=== PATIENT | male | born 1995 | race African-American/Black ===

== ENCOUNTER 2019-07-25 14:29 | Inpatient (IN) | payer OTHER ==
--- NOTE | 2019-07-25 14:47 | EDM.PDOC ---
ED HPI GENERAL MEDICAL PROBLEM - General Chief Complaint: Skin Complaint Stated Complaint: SANCHEZ BITE Time Seen by Provider: 07/25/19 14:37 Source of Information: Reports: Patient History Limitations: Reports: No Limitations - History of Present Illness INITIAL COMMENTS - FREE TEXT/NARRATIVE: HISTORY AND PHYSICAL: History of present illness: Patient is a 23-year-old male presents to the ED with complaint of sanchez bite. Patient was working outside this morning in 5-10 degree weather and states he did wear gloves. He stopped working around 11:30 this morning and has been inside since then but states he continues to have a lot of pain. He has take 1g Tylenol and 800mg Motrin prior to coming to ED without relief of symptoms. Review of systems: As per history of present illness and below otherwise all systems reviewed and negative. Past medical history: As per history of present illness and as reviewed below otherwise noncontributory. Surgical history: As per history of present illness and as reviewed below otherwise noncontributory. Social history: No reported history of drug or alcohol abuse. Family history: As per history of present illness and as reviewed below otherwise noncontributory. Physical exam: General: Patient sitting comfortably in no acute distress and nontoxic appearing HEENT: Atraumatic, normocephalic, pupils reactive, negative for conjunctival pallor or scleral icterus, mucous membranes moist, throat clear, neck supple, nontender, trachea midline. No meningeal signs. Lungs: Clear to auscultation, breath sounds equal bilaterally, chest nontender. Heart: S1S2, regular, negative for clicks, rubs, or overt murmur. Abdomen: Soft, nondistended, nontender. Negative for masses or hepatosplenomegaly. Negative for costovertebral tenderness. No rigidity, rebound , guarding. Pelvis: Stable nontender. Genitourinary: Deferred. Rectal: Deferred. Extremities: Darker discoloration to the 2nd-5th digits on the left and 2nda nd 4th digits on the right from just below the PIP to the distal tip with purplish discoloration to the finger nails. The fingers are slightly swollen and feel firmer to touch. Atraumatic, negative for cords or calf pain. Neurovascular unremarkable. Neuro: Awake, alert, oriented. Cranial nerves II through XII unremarkable. Cerebellum unremarkable. Motor and sensory unremarkable throughout. Exam nonfocal. Notes: Diagnostics: [] Therapeutics: Toradol 60mg IM Prescriptions: Impression: Frostbite, hand pain Plan: Patient will be admitted to Dr. Rich, general surgery, for further management and care. Definitive disposition and diagnosis as appropriate pending reevaluation and review of above. Bilateral Hands Pain Score (Numeric/FACES): 9 - Related Data Allergies Allergy/AdvReac Type Severity Reaction Status Date / Time No Known Allergies Allergy Verified 07/25/19 14:47 Home Meds: Home Meds . [No Known Home Meds] 07/25/19 [History] ED ROS GENERAL - Review of Systems Review Of Systems: ROS reveals no pertinent complaints other than HPI. ED EXAM, SKIN/RASH Exam: See Below (see dictation) Course - Vital Signs Last Recorded V/S: Last Vital Signs Temp 98.7 F 07/25/19 14:47 Pulse 98 07/25/19 14:47 Resp 20 07/25/19 14:47 BP 160/107 H 07/25/19 14:47 Pulse Ox 98 07/25/19 14:47 - Orders/Labs/Meds Orders: Active Orders 24 hr Category Date Time Status Admission Status [Patient Status] [ADT] Stat ADT 07/25/19 16:28 Ordered Meds: Medications Discontinued Medications Generic Name Dose Route Start Last Admin Trade Name Bebe PRN Reason Stop Dose Admin Ketorolac Tromethamine 60 mg 07/25/19 14:55 07/25/19 15:04 Toradol IM 07/25/19 14:56 60 mg ONETIME ONE Administration Departure - Departure Time of Disposition: 16:42 Disposition: Refer to Observation Condition: Good Clinical Impression: Frostbite, Hand pain - Discharge Information Referrals: PCP,None [Primary Care Provider] - Forms: ED Department Discharge - My Orders Last 24 Hours: My Active Orders 07/25/19 16:28 Admission Status [Patient Status] [ADT] Stat - Assessment/Plan Last 24 Hours: My Active Orders 07/25/19 16:28 Admission Status [Patient Status] [ADT] Stat
[2019-07-25] MEDS ORDERED: Ketorolac 60 MG/2 ML SDV IM ONE (14:55)
--- NOTE | 2019-07-25 18:38 | PCM.HP.2 ---
<Bassem Jane - Last Filed: 07/25/19 18:31> H&P History of Present Illness - General Date of Service: 07/25/19 Admit Problem/Dx: Admission Diagnosis/Problem Admission Diagnosis/Problem Hand pain Source of Information: Patient History Limitations: Reports: No Limitations - History of Present Illness Initial Comments - Free Text/Narative: Patient is a 23 year old male that presented to the ED today after being outside from [id number] with thin gloves. He came in with severe pain and swelling to bilateral fingers. He states that he was wearing his summer gloves under rubber gloves. He denies having wet hands. He denies any other symptoms besides pain to the hands and swelling. Onset of Symptoms: Reports: Today Quality: Reports: Sharp, Stabbing, Throbbing Severity: Moderate Improves with: Reports: Medication Worsens with: Reports: Movement Bilateral Hands Pain Score (Numeric/FACES): 4 - Related Data Allergies/Adverse Reactions: Allergies Allergy/AdvReac Type Severity Reaction Status Date / Time No Known Allergies Allergy Verified 07/25/19 14:47 Home Medications: Home Meds . [No Known Home Meds] 07/25/19 [History] Past Medical History - Past Health History Medical/Surgical History: Denies Medical/Surgical History HEENT History: Reports: None Musculoskeletal History: Reports: Other (See Below) Other Musculoskeletal History: crushed left middle finger as a child with bone fragments Neurological History: Reports: Migraines - Infectious Disease History Infectious Disease History: Reports: Chicken Pox - Past Surgical History HEENT Surgical History: Reports: Other (See Below) Other HEENT Surgeries/Procedures: keloid left ear Neurological Surgical History: Reports: None Musculoskeletal Surgical History: Reports: None Social & Family History - Family History Family Medical History: Noncontributory - Tobacco Use Smoking Status *Q: Never Smoker Tobacco Use Comment: hookah socially Second Hand Smoke Exposure: No - Caffeine Use Caffeine Use: Reports: Energy Drinks, Tea - Recreational Drug Use Recreational Drug Use: No H&P Review of Systems - Review of Systems: Review Of Systems: See Below General: Reports: No Symptoms HEENT: Reports: No Symptoms Pulmonary: Reports: No Symptoms Cardiovascular: Reports: No Symptoms Gastrointestinal: Reports: No Symptoms Genitourinary: Reports: No Symptoms Musculoskeletal: Reports: Hand Pain, Joint Pain (in hands) Skin: Reports: Other (blisters to hands) Psychiatric: Reports: No Symptoms Neurological: Reports: No Symptoms Hematologic/Lymphatic: Reports: No Symptoms Exam - Exam Exam: See Below - Vital Signs Vital Signs: Last Vital Signs Temp 99.1 F 07/25/19 17:54 Pulse 84 07/25/19 17:54 Resp 16 07/25/19 17:54 BP 152/94 H 07/25/19 18:10 Pulse Ox 99 07/25/19 17:54 Weight: 214 lb 11.684 oz - Exam General: Alert, Oriented, Cooperative HEENT: Conjunctiva Clear, EOMI, Hearing Intact Lungs: Clear to Auscultation, Normal Respiratory Effort Cardiovascular: Regular Rate, Regular Rhythm GI/Abdominal Exam: Soft, Non-Tender, No Distention Extremities: Other (swelling to all fingers on both hands, inabilty to make full fists due to swelling. Sensation to light touch impaired. blistering to the backs of fingers on left pointer, middle, and ring. Blisters to back of right ring finger) Peripheral Pulses: 3+: Radial (L), Radial (R) Skin: Warm, Dry, Intact Psychiatric: Alert, Normal Affect, Normal Mood *Q Meaningful Use (ADM) - VTE Risk Assess *Q Each Risk Factor Represents 1 Point: None Total Score 1 Point Risk Factors: 0 - Problem List (1) Frostbite SNOMED Code(s): 158271740 ICD Code: T33.90XA - SUPERFICIAL FROSTBITE OF UNSPECIFIED SITES, INIT ENCNTR Status: Acute Priority: High Current Visit: Yes Qualifiers: Encounter type: initial encounter Qualified Code(s): T33.90XA - Superficial frostbite of unspecified sites, initial encounter Problem List Initiated/Reviewed/Updated: Yes Orders Last 24hrs: Active Orders 24 hr Category Date Time Status Admission Status [Patient Status] [ADT] Stat ADT 07/25/19 16:28 Active Regular Diet [DIET] Diet 07/25/19 Dinner Active Assessment/Plan Comment:: Mr. Granado is a 23 year old male that presented to the ED today with frostbite of both hands after cold exposure of 3.5 hrs. Likely a grand two sanchez bite with blisters forming. -Admit for pain control -Schedule NSAIDs to help decrease inflammation -Will place on an antiplatelet agent to assist with blood flow -Regular diet -Full code <Yariel Rich - Last Filed: 07/25/19 18:56> H&P History of Present Illness - General Admit Problem/Dx: Admission Diagnosis/Problem Admission Diagnosis/Problem Hand pain - History of Present Illness Duration of Symptoms: Reports: Hour(s): Location: Reports: Upper Extremity, Left, Lower Extremity, Right Improves with: Reports: Heat Therapy, Rest Worsens with: Reports: Cold Therapy Associated Symptoms: Reports: No Other Symptoms Exam - Vital Signs Vital Signs: Last Vital Signs Temp 99.1 F 07/25/19 17:54 Pulse 84 07/25/19 17:54 Resp 16 07/25/19 17:54 BP 152/94 H 07/25/19 18:10 Pulse Ox 99 07/25/19 17:54 - Problem List (1) Frostbite SNOMED Code(s): 879599951 ICD Code: T33.90XA - SUPERFICIAL FROSTBITE OF UNSPECIFIED SITES, INIT ENCNTR Status: Acute Priority: High Current Visit: Yes Qualifiers: Encounter type: initial encounter Qualified Code(s): T33.90XA - Superficial frostbite of unspecified sites, initial encounter (2) Hand pain SNOMED Code(s): 07006334 ICD Code: M79.643 - PAIN IN UNSPECIFIED HAND Status: Acute Priority: High Current Visit: Yes Qualifiers: Laterality: bilateral Qualified Code(s): M79.641 - Pain in right hand; M79.642 - Pain in left hand Problem List Initiated/Reviewed/Updated: Yes Orders Last 24hrs: Active Orders 24 hr Category Date Time Status Patient Status [ADT] Routine ADT 07/25/19 18:47 Active Ambulate [RC] PER UNIT ROUTINE Care 07/25/19 18:49 Active Antiembolic Devices [RC] PER UNIT ROUTINE Care 07/25/19 18:49 Active Oxygen Therapy [RC] PRN Care 07/25/19 18:47 Active Up ad Kallie [RC] ASDIRECTED Care 07/25/19 18:47 Active VTE/DVT Education [RC] PER UNIT ROUTINE Care 07/25/19 18:47 Active Vital Signs [RC] Q4H Care 07/25/19 18:47 Active Regular Diet [DIET] Diet 07/25/19 Dinner Active Acetaminophen/HYDROcodone [[place] 325-5 MG] Med 07/25/19 18:47 Ordered 1 tab PO Q4H PRN Docusate Sodium/Sennosides [Senokot-S] Med 07/25/19 18:47 Ordered 1 each PO BID PRN HYDROmorphone [Dilaudid] Med 07/25/19 18:47 Ordered 0.5 mg IVPUSH Q2H PRN Ibuprofen [Motrin] Med 07/25/19 19:00 Ordered 600 mg PO Q6H Ondansetron [Zofran] Med 07/25/19 18:47 Ordered 4 mg IVPUSH Q4H PRN Pentoxifylline [TRENtal] Med 07/26/19 08:00 Ordered 400 mg PO BIDMEALS Sequential Compression Device [OM.PC] Per Unit Routine Oth 07/25/19 18:49 Ordered Resuscitation Status Routine Resus Stat 07/25/19 18:47 Ordered Medication Orders Hydrocodone Bitart/Acetaminophen ([place] 325-5 Mg) 1 tab PO Q4H PRN PRN Reason: Pain (moderate 4-6) Hydromorphone HCl (Dilaudid) 0.5 mg IVPUSH Q2H PRN PRN Reason: Pain (severe 7-10) Ibuprofen (Motrin) 600 mg PO Q6H YEIMI Ondansetron HCl (Zofran) 4 mg IVPUSH Q4H PRN PRN Reason: Nausea Pentoxifylline (Trental) 400 mg PO BIDMEALS YEIMI Senna/Docusate Sodium (Senokot-S) 1 each PO BID PRN PRN Reason: Constipation Assessment/Plan Comment:: Patient seen and independently examined. Has moderate frostbite injury to all four fingers on both hands. Blistering present. Able to move all fingers. Tonight he rated the pain a "3". Using both hands for eating. Has blisters that have increased in size and number since seen in the ER earlier tonight. - Mortality Measure Prognosis:: Good
[2019-07-25] MEDS ORDERED: Docusate Sodium/Sennosides Tab PO PRN (18:47)
[2019-07-25] MEDS ORDERED: HYDROmorphone 1 MG/ML Syringe IVPUSH PRN (18:47)
[2019-07-25] MEDS: Ibuprofen 600 MG Tab PO SCH (20:11)
[2019-07-26] MEDS: Ibuprofen 600 MG Tab PO SCH ×4 (01:29→18:04)
--- NOTE | 2019-07-26 08:34 | PCM.PN ---
- General Info Date of Service: 07/26/19 Admission Dx/Problem (Free Text): Frostbite Subjective Update: No acute events overnight. Pain controlled until this morning stabbing pain to the left index finger. Functional Status: Reports: Pain Controlled, Tolerating Diet - Review of Systems General: Reports: No Symptoms HEENT: Reports: No Symptoms Pulmonary: Reports: No Symptoms Cardiovascular: Reports: No Symptoms Gastrointestinal: Reports: No Symptoms Genitourinary: Reports: No Symptoms Musculoskeletal: Reports: Hand Pain Skin: Reports: Other (enlarging blisters) Neurological: Reports: No Symptoms - Patient Data Vitals - Most Recent: Last Vital Signs Temp 97.6 F 07/26/19 04:00 Pulse 57 L 07/26/19 04:00 Resp 18 07/26/19 04:00 BP 133/60 07/26/19 04:00 Pulse Ox 96 07/26/19 04:00 Weight - Most Recent: 214 lb 11.684 oz I&O - Last 24 Hours: Intake & Output 07/25/19 07/26/19 07/26/19 22:59 06:59 14:59 Intake Total 500 Output Total 600 Balance -100 Med Orders - Current: Current Medications Hydrocodone Bitart/Acetaminophen ([place] 325-5 Mg) 1 tab PO Q4H PRN PRN Reason: Pain (moderate 4-6) Hydromorphone HCl (Dilaudid) 0.5 mg IVPUSH Q2H PRN PRN Reason: Pain (severe 7-10) Ibuprofen (Motrin) 600 mg PO Q6H [facility] Last Admin: 07/26/19 06:59 Dose: 600 mg Ondansetron HCl (Zofran) 4 mg IVPUSH Q4H PRN PRN Reason: Nausea Pentoxifylline (Trental) 400 mg PO BIDMEALS YEIMI Senna/Docusate Sodium (Senokot-S) 1 each PO BID PRN PRN Reason: Constipation Discontinued Medications Ketorolac Tromethamine (Toradol) 60 mg IM ONETIME ONE Stop: 07/25/19 14:56 Last Admin: 07/25/19 15:04 Dose: 60 mg - Exam General: Alert, Oriented, Cooperative Lungs: Clear to Auscultation, Normal Respiratory Effort Cardiovascular: Regular Rate, Regular Rhythm GI/Abdominal Exam: Soft, Non-Tender, No Distention Extremities: Other (blisters have increased in size on all fingers extending from DIP past PIP. left hand is more swollen today. ) Peripheral Pulses: 3+: Radial (L), Radial (R) Skin: Warm, Intact - Problem List & Annotations (1) Frostbite SNOMED Code(s): 431269327 Code(s): T33.90XA - SUPERFICIAL FROSTBITE OF UNSPECIFIED SITES, INIT ENCNTR Status: Acute Priority: High Current Visit: Yes Qualifiers: Encounter type: initial encounter Qualified Code(s): T33.90XA - Superficial frostbite of unspecified sites, initial encounter - Problem List Review Problem List Initiated/Reviewed/Updated: Yes - My Orders Last 24 Hours: My Active Orders 07/25/19 18:47 Patient Status [ADT] Routine Oxygen Therapy [RC] PRN Up ad Kallie [RC] ASDIRECTED VTE/DVT Education [RC] PER UNIT ROUTINE Vital Signs [RC] Q4H Acetaminophen/HYDROcodone [[place] 325-5 MG] 1 tab PO Q4H PRN Docusate Sodium/Sennosides [Senokot-S] 1 each PO BID PRN HYDROmorphone [Dilaudid] 0.5 mg IVPUSH Q2H PRN Ondansetron [Zofran] 4 mg IVPUSH Q4H PRN Resuscitation Status Routine 07/25/19 18:49 Ambulate [RC] PER UNIT ROUTINE Antiembolic Devices [RC] PER UNIT ROUTINE Sequential Compression Device [OM.PC] Per Unit Routine 07/25/19 19:00 Ibuprofen [Motrin] 600 mg PO Q6H 07/25/19 Dinner Regular Diet [DIET] - Assessment Assessment:: 23 yr old male admitted for pain control and monitoring of frostbite on . Blisters increasing in size, which is to be expected. - Plan Plan:: -continue to monitor blisters, if they rupture, place xeroform gauze on the fingers wrapped lightly, then place gauze inbetween fingers, then wrap lightly with kerlix. allow for as much hand out as possible
[2019-07-26] MEDS: Pentoxifylline 400 MG Tab.ER PO SCH ×2 (08:57→16:22)
[2019-07-26] MEDS: Acetaminophen/HYDROcodone 325-5 MG Tab PO PRN ×3 (13:13→22:24)
--- NOTE | 2019-07-26 17:22 | PCM.SN ---
<Bassem Jane - Last Filed: 07/26/19 17:20> - Free Text/Narrative Note: Afternoon rounds: Patient with increased pain in hands and up into left arm. Blisters have increased in size and some darker coloration of the fingers. The right middle and pinky finger have the best coloration, but are still swollen -Tetanus shot to be administered -Will add gabapentin scheduled to try to help with some of the pain -PRN IV pain medication available as needed <Yariel Rich - Last Filed: 07/26/19 17:25> - Free Text/Narrative Note: Patient seen and examined with Dr. Jane. Photos taken. Agree with her plan for Tetanus and Gabapentin. Will reassess in am and possibly contact burn center tomorrow.
[2019-07-26] MEDS ORDERED: Diphtheria,Pertussis(Acell),Tetanus Vaccine 0.5 ML Syringe IM ONE (17:23)
[2019-07-26] MEDS: Gabapentin 100 MG Cap PO SCH (21:56)
[2019-07-27] MEDS: Ibuprofen 600 MG Tab PO SCH ×4 (00:05→18:24)
[2019-07-27] MEDS ORDERED: Acetaminophen/HYDROcodone 325-5 MG Tab PO ONE (01:07)
[2019-07-27] MEDS: Morphine 2 MG/ML Syringe IVPUSH PRN ×2 (01:33→04:21)
[2019-07-27] MEDS: Acetaminophen/HYDROcodone 325-5 MG Tab PO PRN ×4 (04:20→21:54)
[2019-07-27] MEDS: Gabapentin 100 MG Cap PO SCH (06:28)
--- NOTE | 2019-07-27 07:39 | PCM.PN ---
<Bassem Jane - Last Filed: 07/27/19 07:58> - General Info Date of Service: 07/27/19 Admission Dx/Problem (Free Text): Frostbite Subjective Update: Increase in pain overnight. Patient states that fingertips are darker in color. Gabapentin that was tried for pain control, did not agree with him, so it was stopped. States pain is sharp and intermittently burning - Review of Systems General: Reports: No Symptoms HEENT: Reports: No Symptoms Pulmonary: Reports: No Symptoms Cardiovascular: Reports: No Symptoms Gastrointestinal: Reports: No Symptoms Genitourinary: Reports: No Symptoms Musculoskeletal: Reports: Hand Pain Skin: Reports: Other (Blisters) Neurological: Reports: No Symptoms - Patient Data Vitals - Most Recent: Last Vital Signs Temp 97.8 F 07/27/19 04:00 Pulse 85 07/27/19 04:00 Resp 16 07/27/19 04:00 BP 132/62 07/27/19 04:00 Pulse Ox 96 07/27/19 04:00 Weight - Most Recent: 214 lb 11.684 oz I&O - Last 24 Hours: Intake & Output 07/26/19 07/27/19 07/27/19 22:59 06:59 14:59 Intake Total 740 1000 Output Total 1075 1000 Balance -335 0 Med Orders - Current: Current Medications Hydrocodone Bitart/Acetaminophen ([place] 325-5 Mg) 1 tab PO Q4H PRN PRN Reason: Pain (moderate 4-6) Last Admin: 07/27/19 04:20 Dose: 1 tab Gabapentin (Neurontin) 100 mg PO TID [facility] Last Admin: 07/27/19 06:28 Dose: 100 mg Ibuprofen (Motrin) 600 mg PO Q6H [facility] Last Admin: 07/27/19 06:27 Dose: 600 mg Morphine Sulfate (Morphine) 2 mg IVPUSH Q1H PRN PRN Reason: Pain Last Admin: 07/27/19 04:21 Dose: 2 mg Ondansetron HCl (Zofran) 4 mg IVPUSH Q4H PRN PRN Reason: Nausea Pentoxifylline (Trental) 400 mg PO BIDMEALS [facility] Last Admin: 07/26/19 16:22 Dose: 400 mg Senna/Docusate Sodium (Senokot-S) 1 each PO BID PRN PRN Reason: Constipation Discontinued Medications Hydrocodone Bitart/Acetaminophen ([place] 325-5 Mg) 1 tab PO ONETIME ONE Stop: 07/27/19 01:08 Last Admin: 07/27/19 01:32 Dose: 1 tab Diphtheria/Tetanus/Acell Pertussis (Adacel) 0.5 ml IM .ONCE ONE Stop: 07/26/19 17:24 Last Admin: 07/26/19 17:58 Dose: 0.5 ml Hydromorphone HCl (Dilaudid) 0.5 mg IVPUSH Q2H PRN PRN Reason: Pain (severe 7-10) Last Admin: 07/26/19 20:23 Dose: 0.5 mg Ketorolac Tromethamine (Toradol) 60 mg IM ONETIME ONE Stop: 07/25/19 14:56 Last Admin: 07/25/19 15:04 Dose: 60 mg - Exam General: Alert, Oriented Lungs: Clear to Auscultation, Normal Respiratory Effort Cardiovascular: Regular Rate, Regular Rhythm GI/Abdominal Exam: Soft, Non-Tender Extremities: Other (Right middle and pinky finger with normal coloration, but slightly swollen. Blisters have progressed in size. fingertips more black in color, and cool to touch) Peripheral Pulses: 3+: Radial (L), Radial (R) Skin: Dry, Intact Psy/Mental Status: Alert, Normal Affect, Normal Mood - Problem List & Annotations (1) Frostbite SNOMED Code(s): 107493376 Code(s): T33.90XA - SUPERFICIAL FROSTBITE OF UNSPECIFIED SITES, INIT ENCNTR Status: Acute Priority: High Current Visit: Yes Qualifiers: Encounter type: initial encounter Qualified Code(s): T33.90XA - Superficial frostbite of unspecified sites, initial encounter - Problem List Review Problem List Initiated/Reviewed/Updated: Yes - My Orders Last 24 Hours: My Active Orders 07/26/19 17:23 Vaccines to be Administered [RC] PER UNIT ROUTINE 07/26/19 22:00 Gabapentin [Neurontin] 100 mg PO TID - Assessment Assessment:: 23 yr old male admitted for pain control and monitoring of frostbite on . Blisters increasing in size, progression of discoloration to fingetips. - Plan Plan:: -continue to monitor blisters, if they rupture, place xeroform gauze on the fingers wrapped lightly, then place gauze inbetween fingers, then wrap lightly with kerlix. allow for as much hand out as possible -Will be calling the burn center today for recommendations -PRN pain control <Yariel Rich - Last Filed: 07/27/19 08:21> - Patient Data Vitals - Most Recent: Last Vital Signs Temp 97.4 F 07/27/19 07:34 Pulse 80 07/27/19 07:34 Resp 16 07/27/19 07:34 BP 133/83 07/27/19 07:34 Pulse Ox 96 07/27/19 07:34 I&O - Last 24 Hours: Intake & Output 07/26/19 07/27/19 07/27/19 19:59 03:59 11:59 Intake Total 740 1000 Output Total 1075 1000 Balance -335 0 Med Orders - Current: Current Medications Hydrocodone Bitart/Acetaminophen ([place] 325-5 Mg) 1 tab PO Q4H PRN PRN Reason: Pain (moderate 4-6) Last Admin: 07/27/19 04:20 Dose: 1 tab Ibuprofen (Motrin) 600 mg PO Q6H [facility] Last Admin: 07/27/19 06:27 Dose: 600 mg Morphine Sulfate (Morphine) 2 mg IVPUSH Q1H PRN PRN Reason: Pain Last Admin: 07/27/19 04:21 Dose: 2 mg Ondansetron HCl (Zofran) 4 mg IVPUSH Q4H PRN PRN Reason: Nausea [facility] Last Admin: 07/26/19 16:22 Dose: 400 mg Senna/Docusate Sodium (Senokot-S) 1 each PO BID PRN PRN Reason: Constipation Discontinued Medications Hydrocodone Bitart/Acetaminophen ([place] 325-5 Mg) 1 tab PO ONETIME ONE Stop: 07/27/19 01:08 Last Admin: 07/27/19 01:32 Dose: 1 tab Diphtheria/Tetanus/Acell Pertussis (Adacel) 0.5 ml IM .ONCE ONE Stop: 07/26/19 17:24 Last Admin: 07/26/19 17:58 Dose: 0.5 ml Gabapentin (Neurontin) 100 mg PO TID [facility] Last Admin: 07/27/19 06:28 Dose: 100 mg Hydromorphone HCl (Dilaudid) 0.5 mg IVPUSH Q2H PRN PRN Reason: Pain (severe 7-10) Last Admin: 07/26/19 20:23 Dose: 0.5 mg Ketorolac Tromethamine (Toradol) 60 mg IM ONETIME ONE Stop: 07/25/19 14:56 Last Admin: 07/25/19 15:04 Dose: 60 mg - Problem List & Annotations (1) Frostbite SNOMED Code(s): 492205095 Code(s): T33.90XA - SUPERFICIAL FROSTBITE OF UNSPECIFIED SITES, INIT ENCNTR Status: Acute Priority: High Current Visit: Yes Qualifiers: Encounter type: initial encounter Qualified Code(s): T33.90XA - Superficial frostbite of unspecified sites, initial encounter (2) Hand pain SNOMED Code(s): 63763863 Code(s): M79.643 - PAIN IN UNSPECIFIED HAND Status: Acute Priority: High Current Visit: Yes Qualifiers: Laterality: bilateral Qualified Code(s): M79.641 - Pain in right hand; M79.642 - Pain in left hand - Problem List Review Problem List Initiated/Reviewed/Updated: Yes - My Orders Last 24 Hours: My Active Orders 07/26/19 08:00 Pentoxifylline [TRENtal] 400 mg PO BIDMEALS 07/26/19 08:41 Communication Order [RC] DAILY 07/27/19 01:08 Morphine 2 mg IVPUSH Q1H PRN - Plan Plan:: Patient seen and examined on rounds. Blistering has increased and fingers are turning jessenia. Blisters are intact without drainage. Patient does have a significant risk of digit loss. Spoke with Dr. Burnette at [facility] in [place]. Will send him pictures for advice and possible transfer there later today. Patient will need burn care and Plastic Surgery involvement.
[2019-07-27] MEDS: Pentoxifylline 400 MG Tab.ER PO SCH ×2 (08:38→18:12)
[2019-07-27] MEDS: Ondansetron 4 MG/2 ML SDV IVPUSH PRN (16:44)
--- NOTE | 2019-07-27 17:38 | PCM.SN ---
<Bassem Jane - Last Filed: 07/27/19 17:33> - Free Text/Narrative Note: Evening rounds Pain has been controlled throughout day with just pills. Feels like blistering has increased in size on left hand. Extremities: left hand enlarging blisters to four fingers, finger tips dark in color. Left thumb with superficial blister. Right middle and pinky finger appear normal in coloration, with superficial fullness. Other fingers with large blisters. Tips of fingers on left hand cool to touch, right finger tips cool to touch except middle and pinky. -Discussed with [facility] burn center, will plan for transfer to them tomorrow morning via fixed wing aircraft -Dressed fingers with xeroform and kerlix this evening <Yariel Rich - Last Filed: 07/28/19 07:40> - Free Text/Narrative Note: Patient seen on rounds with Dr. Jane. Agree with assessment and plan. Will be transferred to [facility], Dr. Burnette by fixed wing in am.
[2019-07-28] MEDS: Ibuprofen 600 MG Tab PO SCH ×2 (01:24→06:24)
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
[2019-07-28] MEDS: Acetaminophen/HYDROcodone 325-5 MG Tab PO PRN (08:02)
[2019-07-28] MEDS: Pentoxifylline 400 MG Tab.ER PO SCH (08:03)
[2019-07-28] MEDS: Morphine 2 MG/ML Syringe IVPUSH PRN (08:56)
[2019-07-28] MEDS: Ondansetron 4 MG/2 ML SDV IVPUSH PRN (08:56)
== END 2019-07-28 10:10 | DRG 923 ==
LOC: MW.ED 14:29 → MW.MS 16:28 → OBSVTOIN 18:47 → MW.MS 07-26 07:47
PROVIDERS: ADMIT Surgery; ATTEND Surgery
PROC: 3E0234Z Introduction of Serum, Toxoid and Vaccine into Muscle, Percutaneous Approach (ICD-10-PCS; principal; 2019-07-26)
DX: T33.522A Superficial frostbite of left hand, initial encounter (principal); T33.521A Superficial frostbite of right hand, initial encounter; T34.532 Frostbite with tissue necrosis of left finger(s); Z23 Encounter for immunization; X31.XXXA Exposure to excessive natural cold, initial encounter
CPT/HCPCS: 90471; 90715; 96372; 99282; 99284; A9270-GY; G0378; J1170; J1885; J2270; J2405

== ENCOUNTER 2022-09-03 07:26 | Emergency (ER) | payer BC, OTHER | END 2022-09-03 08:04 | disposition home or self-care (01) | LOC: MW.ED 07:26 | DX: T33.532A Superficial frostbite of left finger(s), initial encounter (principal); T33.531A Superficial frostbite of right finger(s), initial encounter; X31.XXXA Exposure to excessive natural cold, initial encounter | CPT/HCPCS: 99283 ==